=== PATIENT | female | born 1940 | race African-American/Black ===

== ENCOUNTER 2019-02-09 11:00 | Observation (INO) ==
--- NOTE | 2019-02-09 12:39 | Diag Imaging Result Doc PS360 ---
EXAM: CHEST-2 VIEWS - 02/09/2019 HISTORY: productive cough TECHNIQUE: Chest two views COMPARISON: 07/26/2017 one view chest FINDINGS: Heart size is normal. There is some tortuosity of the thoracic aorta. There are right upper lobe granuloma and calcified right hilar and mediastinal lymph nodes from old granulomatous disease similar to prior. The lungs otherwise appear essentially clear. There is mild thickening of the right minor fissure. There is no consolidation, substantial pleural effusion, or pneumothorax identified. There is thoracic spondylosis, as well as exaggerated upper thoracic kyphosis, noted. IMPRESSION: Mild thickening of right minor fissure. No evidence of pneumonia. Electronically signed by López Cramer 02/09/2019 12:36 PM
[2019-02-09 12:47] LABS: INFLUENZA A POSITIVE (NEGATIVE); INFLUENZA B NEGATIVE (NEGATIVE)
[2019-02-09] MEDS ORDERED: NS 1,000 ML IV ONE ×2 (13:04→13:50)
[2019-02-09] MEDS ORDERED: TAMIFLU PO ONE (13:05)
--- NOTE | 2019-02-09 13:31 | PROVIDER DOCUMENTATION ---
This chart was entered by Aries Meyers Scribe, acting as scribe for Ruben Emery DO. HPI-Abdominal Pain/GI Problem - General Chief Complaint: Cough Stated Complaint: COUGH / SORE THROAT Time Seen by Provider: 02/09/19 12:12 Source: patient, family Allergies/Adverse Reactions: Patient Allergies Allergy/AdvReac Type Severity Reaction Status Date / Time No Known Allergies Allergy Verified 02/09/19 12:38 Home Medications: Home Medication List Medication Instructions Recorded Confirmed Last Taken Type Metoprolol Succinate E.r. [Toprol 25 mg PO DAILY #30 tablet 11/12/16 02/09/19 Unknown Rx Xl] Insulin Glargine [Lantus] 26 units SQ QHS 06/30/17 02/09/19 Unknown History Apixaban [Eliquis] 5 mg PO BID 07/26/17 02/09/19 Unknown History Aspirin 1 tab PO DAILY 07/26/17 02/09/19 Unknown History Lisinopril [Zestril] 5 mg PO DAILY 07/26/17 02/09/19 Unknown History Pravastatin Sodium 20 mg PO HS 02/09/19 02/09/19 Unknown History - History of Present Illness-ABD Nature of Presenting Problems: 78 yof presents to the ed with coughing, N/V. pt states onset symptoms started Wed. pt states " cough ,cough, then i vomit." pt states " bilateral lower extremity cramps started before Wed and are at night. " pt states taking Robitussin with no relief. Quality of Pain: reports: none Severity in ED: reports: mild Onset/Duration: reports: 4 days ago Timing: reports: still present Activities at Onset: reports: none Modifying Factors: improves with: nothing Associated Symptoms: reports: cough, nausea, vomiting. denies: back/neck pain, chest pain, constipation, diarrhea, fever/chills, loss of appetite, rash, shortness of breath Last BM: unsure Dark Stools Present?: reports: none noticed Rectal Bleeding: reports: none Rectal Pain: reports: none # of Vomiting Episodes: 3 (since mon) Emesis Description: reports: none Bruising or Bleeding Gums?: No Similar Symptoms Previously?: No Recently seen or treated by another doctor?: No Review of Systems - Adult - REVIEW OF SYSTEMS - ADULT Constitutional: denies: chills, fever Eyes: reports: no symptoms reported Ears, Nose, Mouth & Throat: reports: no symptoms reported Cardiovascular: denies: chest pain, heart murmur, palpitations Respiratory: reports: see HPI, cough. denies: shortness of breath, wheezing Gastrointestinal: reports: nausea, vomiting. denies: abdominal pain, constipation, diarrhea Genitourinary: reports: no symptoms reported Musculoskeletal: denies: back pain, neck pain Integumentary: denies: hives, rash Neurological: denies: numbness, syncope Psychiatric: reports: no symptoms reported Endocrine: reports: no symptoms reported Hematologic/Lymphatic: reports: no symptoms reported Allergic/Immunologic: reports: no symptoms reported All Other Systems: Reviewed and Negative Past History - Adult - PAST MEDICAL HISTORY-ADULT Review of Records: reports: Old Records Reviewed, Nursing Assessment Review, Medications Reviewed, Social history reviewed & non-contributory. Major Childhood Illnesses: reports: denies history Cardiovascular: reports: HTN Respiratory: reports: denies history Gastrointestinal: reports: other (gastroparesis) Obstetrical/Gynecological: reports: denies history Genitourinary: reports: denies history Musculoskeletal: reports: denies history Neurological: reports: denies history Endocrine/Immune: reports: Diabetes Other Conditions: reports: denies history - PRIOR SURGERIES/PROCEDURES Surgical/Procedure History: reports: cholecystectomy, orthopedic (extremity) - PRIOR HOSPITALIZATIONS Prior Hospitalizations: reports: for similar symptoms - IMMUNIZATION STATUS Childhood Immunizations: See Nurse Assessment Flu Vaccine: See Nurse Assessment - FAMILY HISTORY Family History: reviewed, not pertinent - SOCIAL HISTORY Smoking: denies Substance Use: denies Alcohol Use Frequency: never Physical Exam-General - PHYSICAL EXAM-ADULT Initial Vital Signs Reviewed: Yes - CONSTITUTIONAL General Appearance: appears well, alert, mild distress - EYES Eyes: PERRL/EOMI - HEAD, EARS, NOSE, MOUTH & THROAT HENMT: moist mucous membranes - NECK Neck: full range of motion - RESPIRATORY Respiratory: chest non-tender, lungs clear, normal breath sounds, no pleuratic chest pain, no respiratory distress, no accessory muscle use - CARDIOVASCULAR Cardiovascular: normal peripheral pulses, regular rate, rhythm, no edema, no gallop, no murmur - CHEST (BREASTS) Chest/Breast: deferred - GASTROINTESTINAL (ABDOMEN) Abdominal Exam: normal bowel sounds, non tender, soft, no organomegaly, no pulsatile mass - GENITOURINARY Female Genitalia/Pelvic Exam: deferred Rectal Exam: deferred Hemoccult Exam: deferred - MUSCULOSKELETAL Back Exam: normal inspection, no CVA tenderness, no vertebral tenderness Extremity: normal range of motion, non-tender, normal inspection, no pedal edema - SKIN Integumentary: normal color, normal turgor, warm/dry - NEUROLOGIC Neurologic: grossly normal, no motor/sensory deficits - PSYCHIATRIC Psych/Mental Status: normal mood/affect, normal thought content, normal thought process, oriented x 3 Progress - PLAN OF CARE/RESULTS Progress/Plan/Lab Results: Vital Signs - 8 hr 02/09/19 11:17 Temperature 98.8 F Pulse Rate 93 H Respiratory Rate 18 Blood Pressure 103/58 O2 Sat by Pulse Oximetry 100 Laboratory Results - last 24 hr 02/09/19 02/09/19 11:25 12:08 POC Glucose 233 H Influenza A (Rapid) POSITIVE A Influenza B (Rapid) NEGATIVE Orders Category Date Time Status FSBS [Finger Stick Blood Sugar (ED)] DIRECTED Care 02/09/19 11:22 Active CHEST-2 VIEWS [RAD] Stat Exams 02/09/19 11:[address] Stat Lab 02/09/19 12:08 Completed - XRAY 1 XRAY Study: Chest Impression: See EMR Report (EXAM: CHEST-2 VIEWS - 02/09/2019 HISTORY: productive cough TECHNIQUE: Chest two views COMPARISON: 07/26/2017 one view chest FINDINGS: Heart size is normal. There is some tortuosity of the thoracic aorta. There are right upper lobe granuloma and calcified right hilar and mediastinal lymph nodes from old granulomatous disease similar to prior. The lungs otherwise appear essentially clear. There is mild thickening of the right minor fissure. There is no consolidation, substantial pleural effusion, or pneumothorax identified. There is thoracic spondylosis, as well as exaggerated upper thoracic kyphosis, noted. IMPRESSION: Mild thickening of right minor fissure. No evidence of pneumonia. Electronically signed by López Cramer 02/09/2019 12:36 PM 02/09/19 1236 Interpreting Physician: López Cramer MD Dictated Date/Time: 02/09/19 1233 cc: Ruben Emery DO; Melvin Barry MD) - CONSULTS/PCP/HOSPITALIST Notification #1 *Consult/PCP/Hospitalist*: De. Emery on the phone with Time Discussed: 13:21 Consult Disposition: Admit Departure - Departure Date of Disposition Decision: 02/09/19 Time of Disposition Decision: 13:31 DIAGNOSIS: Influenza, Nausea & vomiting Disposition: ADMITTED INPATIENT 09 Certified Medical Emergency: Emergent Condition: Fair Referrals and Follow-Ups: Melvin Barry MD [Primary Care Provider] - - Critical Care Note This patient required my direct & personal management of CC.: No Attestation - Physician/ KAILA Attestation Patient care was provided by Advanced Practice Provider:: No The physician spent face to face time with patient:: Yes Advanced Practice Provider documentation review:: Supervising physician onsite and consulted in the evaluation and care of this patient. The physician did have a face to face encounter with the patient. This chart was documented by the indicated scribe, (Aries Meyers, Scribe) and accurately reflects the services I performed and decisions made by , Ruben Emery DO, as attested by the provider's signature.
[2019-02-09 13:49] LABS: BASO# 0.02 X1000 (0.0-0.2); BASO% 0.3 % (0.0-0.8); EOS# 0.01 X1000 (0.0-0.7); EOS% 0.2 % (0.0-10.0); HEMATOCRIT 45.3 % (37.0-47.0); HEMOGLOBIN 14.6 g/dL (12.0-16.0); IMM GRAN# 0.02 X1000 (0.0-0.04); IMM GRAN% 0.3 % (0.0-0.5); LYMPH# 1.88 X1000 (1.2-3.4); LYMPH% 28.8 % (20.5-51.1); MCH 29.9 PG (27-31); MCHC 32.2 g/dL (33-37); MCV 92.8 FL (81-99); MONO# 1.34 X1000 (0.11-0.59); MONO% 20.6 % (1.7-9.3); MPV 12.8 FL (7.4-10.4); NEUT# 3.25 X1000 (1.4-6.5); NEUT% 49.8 % (42.2-75.2); PLT 154 X1000 (130-400); RBC 4.88 XMIL (4.2-5.4); RDW 12.5 % (11.5-14.5); WBC 6.52 X1000 (4.8-10.8)
[2019-02-09] MEDS ORDERED: PRINIVIL PO ONE (14:00)
[2019-02-09] MEDS ORDERED: TOPROL XL PO ONE (14:00)
[2019-02-09] MEDS ORDERED: PRAVACHOL PO ONE (14:00)
[2019-02-09] MEDS ORDERED: LANTUS INSULIN SUBQ ONE (14:00)
[2019-02-09] MEDS ORDERED: PRINIVIL ONE (14:10)
[2019-02-09] MEDS: ELIQUIS PO SCH ×2 (14:15→20:34)
[2019-02-09 14:39] LABS: ALBUMIN 3.4 g/dL (3.5-5.0); CALCIUM 8.2 mg/dL (8.8-10.2); CREATININE 1.2 mg/dL (0.5-0.9); POTASSIUM 4.1 mmol/L (3.5-5.1); TOTAL BILIRUBIN 0.8 mg/dL (0.20-1.00); TOTAL PROTEIN 6.3 g/dL (6.3-8.3)
[2019-02-09] MEDS: TAMIFLU PO SCH (20:34)
[2019-02-10] LABS: URINE SOURCE CLEAN CATCH
[2019-02-10 00:05] LABS: BILIRUBIN URINE NEGATIVE (NEGATIVE); BLOOD URINE NEGATIVE (NEGATIVE); COLOR YELLOW; GLUCOSE URINE 200 mg/dL (NEGATIVE); KETONE URINE TRACE mg/dL (NEGATIVE); LEUKOCYTES URINE MODERATE (NEGATIVE); NITRITE URINE NEGATIVE (NEGATIVE); PROTEIN URINE TRACE mg/dL (NEGATIVE); SP GRAVITY URINE 1.019; TURBIDITY URINE CLEAR (CLEAR); UROBILINOGEN URINE NORMAL (NORMAL)
[2019-02-10 00:39] LABS: URINE RBC <10 /HPF (<10)
[2019-02-10 00:40] LABS: UR EPITHELIAL CELLS >10 /HPF (<10); URINE BACTERIA 2+ /HPF; URINE CASTS GRANULAR PRESENT; URINE CRYSTALS NONE SEEN; URINE SMALL ROUND CELLS NONE SEEN; URINE YEAST NONE SEEN
[2019-02-10] MEDS ORDERED: TYLENOL PO PRN (03:16)
[2019-02-10] MEDS: ROBITUSSIN-AC PO PRN (04:30)
[2019-02-10] MEDS: ELIQUIS PO SCH ×2 (08:58→20:12)
[2019-02-10] MEDS: PRINIVIL PO SCH (08:58)
[2019-02-10] MEDS: ASPIRIN PO SCH (08:58)
[2019-02-10] MEDS: TAMIFLU PO SCH ×2 (08:58→20:12)
[2019-02-10] MEDS: TOPROL XL PO SCH (08:58)
[2019-02-10] MEDS: PRAVACHOL PO SCH (20:12)
[2019-02-10] MEDS ORDERED: TAMIFLU PO SCH (21:00)
[2019-02-10] MEDS: LANTUS INSULIN SUBQ SCH (21:16)
[2019-02-11] MEDS: ROBITUSSIN-AC PO PRN (00:13)
[2019-02-11] MEDS: ASPIRIN PO SCH (10:20)
[2019-02-11] MEDS: TOPROL XL PO SCH (10:21)
[2019-02-11] MEDS: ELIQUIS PO SCH ×2 (10:21→20:23)
[2019-02-11] MEDS: TAMIFLU PO SCH ×2 (10:21→20:23)
[2019-02-11] MEDS: PRINIVIL PO SCH (10:21)
[2019-02-11 14:24] LABS: BASO# 0.06 X1000 (0.0-0.2); BASO% 0.9 % (0.0-0.8); EOS# 0.08 X1000 (0.0-0.7); EOS% 1.3 % (0.0-10.0); HEMATOCRIT 38.7 % (37.0-47.0); HEMOGLOBIN 12.2 g/dL (12.0-16.0); IMM GRAN# 0.01 X1000 (0.0-0.04); IMM GRAN% 0.2 % (0.0-0.5); LYMPH# 1.96 X1000 (1.2-3.4); MCH 29.3 PG (27-31); MCHC 31.5 g/dL (33-37); MCV 92.8 FL (81-99); MONO# 0.73 X1000 (0.11-0.59); MONO% 11.6 % (1.7-9.3); NEUT# 3.48 X1000 (1.4-6.5); PLT 144 X1000 (130-400); RBC 4.17 XMIL (4.2-5.4); RDW 12.1 % (11.5-14.5); WBC 6.32 X1000 (4.8-10.8)
[2019-02-11 14:49] LABS: AGAP 12; ALBUMIN 3.1 g/dL (3.5-5.0); ALKALINE PHOSPHATASE 69 U/L (32-104); BUN 16 mg/dL (8-22); CHLORIDE 97 mmol/L (98-107); COSMO 277; CREATININE 0.8 mg/dL (0.5-0.9); ESTIMATED GFR > 60; GLUCOSE 338 mg/dL (70-104); GOT 29 U/L (10-30); GPT 17 U/L (10-36); POTASSIUM 4.4 mmol/L (3.5-5.1); SODIUM 131 mmol/L (136-145); TCO2 22 mmol/L (25-35); TOTAL PROTEIN 6.1 g/dL (6.3-8.3)
--- NOTE | 2019-02-11 19:58 | Diag Imaging Result Doc PS360 ---
CHEST-2 VIEWS - 02/11/2019 INDICATION: pneumonia COMPARISON: 02/09/2019 FINDINGS: There is some stable linear atelectasis or scarring in the right minor fissure. The lungs are clear. Heart size is normal. No pneumothorax or pleural effusion. IMPRESSION: No acute disease or change from prior. Electronically signed by Hal Graff 02/11/2019 7:55 PM
[2019-02-11] MEDS: PRAVACHOL PO SCH (20:23)
[2019-02-11] MEDS: LANTUS INSULIN SUBQ SCH (22:20)
[2019-02-12] MEDS: ELIQUIS PO SCH (08:25)
[2019-02-12] MEDS: TAMIFLU PO SCH (08:25)
[2019-02-12] MEDS: PRINIVIL PO SCH (08:25)
[2019-02-12] MEDS: TOPROL XL PO SCH (08:25)
[2019-02-12] MEDS: ASPIRIN PO SCH (08:25)
[2019-02-12 13:30] VITALS: BP 163/54
--- NOTE | 2019-02-12 15:40 | HISTORY AND PHYSICAL ---
HISTORY OF PRESENT ILLNESS: This is an 78-year-old female who I see in the office who presented to the emergency room on 02/09/2019 brought in by her family complaining of a cough, sore throat and episodes of vomiting. The patient said that since Monday, a couple of days prior to her being admitted, she would begin having these coughing spells followed by vomiting. She started having leg cramps at night and body aches. She was put on some Robitussin with no relief, so she presents to the ER 4 days after the onset of these symptoms where she was evaluated. MEDICATIONS: Metoprolol succinate ER 25 mg daily, Lantus 26 units q bedtime, Eliquis 5 mg p.o. b.i.d. for history of lung clot, aspirin, Zestril 5 mg, pravastatin 20. She has also had cardiomyopathy as well. ALLERGIES: She has no allergies. She denies having any dark stools or blood in her vomit. She has vomited 3 times since Monday. No other signs of any kind of bleeding anywhere. She denies constipation or diarrhea. [employer]: She denies any history. Genitourinary: No polyuria, polydipsia, hematuria. Musculoskeletal: Other than occasional cramps in her legs, no significant problem. Neurological: No focal neurological deficits. No neurological issues. Endocrine: She is diabetic and has been told to have gastroparesis, but that is somewhat debatable. PAST MEDICAL HISTORY: No unusual childhood illnesses. She has had hypertension. 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 She has had a history of cardiomyopathy, being evaluated at [facility]. She also has a history of diabetes and has been deemed gastroparetic. She has had numerous episodes where she has been hospitalized for uncontrollable vomiting for days on end. PREVIOUS SURGERIES: Cholecystectomy, some various orthopedic type surgeries. She has been hospitalized in the past for these episodes of vomiting, but on this particular occasion she has Flu A unlike other times when she just vomits repetitively for no reason other than maybe gastroparesis. SOCIAL HISTORY: She is a nonsmoker. She does not abuse any substance and never drank alcohol. PHYSICAL EXAMINATION: VITAL SIGNS: Temperature 98, pulse 93, respirations 18, blood pressure 103/58, O2 saturation 100. HEENT: Head is normocephalic. Eyes: PERRL. EOMs intact. Sclerae clear and anicteric. ENT: No ear issues. No significant sore throat. Her membranes are moist. NECK: Full range of motion. Midline trachea. Carotids without bruits. CHEST: Bilateral clear breath sounds, under no distress. CARDIOVASCULAR: Regular rhythm and rate. No murmurs, gallops, clicks or rubs. ABDOMEN: Soft, nontender. No organomegaly. No masses. MUSCULOSKELETAL: Negative. SKIN: Clear, warm and dry. NEUROLOGICAL: Symmetrical. No neurological issues. PSYCHIATRIC: Negative other than she is a good histrionic. Her chest x-ray done in the ER shows mild thickening of the right minor fissure and no evidence of pneumonia as read by the attending physician. So, she was admitted with a positive Flu A swab initially to the hospitalist and switched to sc for flu and diabetes, cardiomyopathy, gastroparesis and history of cyclical vomiting. cc: Melvin Barry MD
--- NOTE | 2019-03-19 09:19 | DISCHARGE SUMMARY ---
ADMISSION DATE: 02/09/2019 DISCHARGE DATE: 02/12/2019 Ms. Baker presented to the emergency room on 02/09 and was admitted to the hospital by Dr. Emery who was staff in the ER that night. Family brought her in mostly because of cough, sore throat, episodes of vomiting. The patient said that since Monday, a couple days prior to her being admitted, she would begin having these coughing spells followed by vomiting. She stated she started having leg cramps at night and body aches. She was put on Robitussin with no relief so she presented to the ER four days after the onset of these symptoms where she was evaluated. Medications are metoprolol succinate 25 daily, Eliquis 5 b.i.d., Lantus 26 nightly, Zestril 5, pravastatin 20, aspirin for her history of lung clots. She also has a history of cardiomyopathy as well. Her chest x-ray done in the ER showed mild thickening to the right minor fissure and no evidence of pneumonia as read by the attending physician. She was admitted with positive flu A swab, initially to the hospitalist and then switched to id for her diabetes, cardiomyopathy and gastroparesis. During this hospital stay she had the initial x-ray at 1:30 which showed mild thickening of the right minor fissure, no pneumonia and subsequent x-ray showed no acute disease. Her microbiology, urine was with a mixed elizabeth. Laboratory: White count was 6.52 on 02/09 and 6.32 on 02/11. Hematocrit was 45.3 and 38.7. Platelet count was 154 and 144. Sodium 132. Potassium 4.1. Chloride 96. Carbon dioxide 23. BUN 28. Creatinine 1.2. GFR 43. BUN and creatinine ratio 23. Glucoses were in the low 230 range. Calcium was 8.2. Albumin was low at 3.4. LFTs were normal. Urinalysis had 200 on dipstick. Moderate leukocytes, 10 to 20, 2+ bacteria. Serologies were positive for flu. She was discharged to her home medicines, metoprolol succinate 25 daily and insulin glargine 100 units per meal 26 subcutaneously, aspirin 81,eliquis b.i.d., lisinopril 2.5, pravastatin. In the hospital placed on Tamiflu 75 b.i.d. Continue on metoprolol, pravastatin, lisinopril, Eliquis. Treat her symptomatically with guaifenesin. Patient was discharged with flu A. To be followed as an outpatient. cc: Melvin Barry MD MTDD
== END 2019-02-12 18:42 | disposition home or self-care (01) ==
LOC: P.ED 11:00 → P.MEDSURG 11:00
PROVIDERS: ADMIT Internal Medicine; ATTEND Internal Medicine

== ENCOUNTER 2019-05-22 13:54 | Observation (INO) ==
[2019-05-22] MEDS ORDERED: NS 1,000 ML IV ONE ×3 (14:52→19:32)
[2019-05-22] MEDS ORDERED: ZOFRAN IV ONE ×2 (14:52→18:29)
--- NOTE | 2019-05-22 15:04 | PROVIDER DOCUMENTATION ---
HPI-Abdominal Pain/GI Problem - General Chief Complaint: Nausea/Vomiting Stated Complaint: N / V Time Seen by Provider: 05/22/19 14:51 Source: patient Allergies/Adverse Reactions: Patient Allergies Allergy/AdvReac Type Severity Reaction Status Date / Time No Known Allergies Allergy Verified 02/09/19 12:38 Home Medications: Home Medication List Medication Instructions Recorded Confirmed Last Taken Type Metoprolol Succinate E.r. [Toprol 25 mg PO DAILY #30 tablet 11/12/16 02/09/19 Unknown Rx Xl] Insulin Glargine [Lantus] 26 units SQ QHS 06/30/17 02/09/19 Unknown History Apixaban [Eliquis] 5 mg PO BID 07/26/17 02/09/19 Unknown History Aspirin 1 tab PO DAILY 07/26/17 02/09/19 Unknown History Lisinopril [Zestril] 5 mg PO DAILY 07/26/17 02/09/19 Unknown History Pravastatin Sodium 20 mg PO HS 02/09/19 02/09/19 Unknown History Guaifenesin/Codeine [Robitussin-AC] 5 ml PO Q6H PRN PRN #6 udc 02/12/19 Unknown Rx - History of Present Illness-ABD Nature of Presenting Problems: 78 YOF with PMH of HTN and DM presents with c/o n/v since this AM. Denies fever, chills, SOB, CP, Diarrhea. Patient denies abdominal pain Quality of Pain: reports: none Severity in ED: reports: moderate Onset/Duration: reports: this morning Timing: reports: still present Activities at Onset: reports: none Exposure to sick contacts?: No Modifying Factors: improves with: nothing Associated Symptoms: reports: nausea, vomiting Last BM: 24 hours ago Dark Stools Present?: reports: none noticed Rectal Bleeding: reports: none # of Diarrhea Episodes: 0 Rectal Pain: reports: none # of Vomiting Episodes: 8 Emesis Description: reports: clear Bruising or Bleeding Gums?: No Similar Symptoms Previously?: Yes Recently seen or treated by another doctor?: No Review of Systems - Adult - REVIEW OF SYSTEMS - ADULT Constitutional: reports: no symptoms reported. denies: see HPI, chills, fever, fatique, night sweats, weight gain, weight loss, other Eyes: reports: no symptoms reported. denies: see HPI, discharge, dry eyes, decreased vision, blurred vision, double vision, eye pain, redness, other Ears, Nose, Mouth & Throat: reports: no symptoms reported. denies: see HPI, ear discharge, ear pain, hearing loss, tinnitus, epistaxis, sinus problem, nose pain, loose teeth, mouth/dental pain, mouth swelling, hoarseness, throat pain, throat swelling, other Cardiovascular: reports: no symptoms reported. denies: see HPI, chest pain, edema, heart murmur, irregular heart rate, orthopnea, palpitations, poor circulation, PND, syncope, other Respiratory: reports: no symptoms reported. denies: see HPI, chronic cough, cough, dyspnea on exertion, excessive sputum production, hemoptysis, pleurisy, shortness of breath, wheezing, other Gastrointestinal: reports: see HPI, nausea, vomiting. denies: no symptoms reported, abdominal pain, hematemesis, constipation, diarrhea, difficulty swa llowing, frequent heartburn, poor appetite, rectal bleeding, other Genitourinary: reports: no symptoms reported. denies: see HPI, dysuria, discharge, frequency, flank pain, frequent UTI's, hematuria, hesitency, incontinence, urinary retention, urgency, other Musculoskeletal: reports: no symptoms reported. denies: see HPI, bone pain, back pain, frequent leg cramps, joint pain, joint swelling, muscle aches, muscle weakness, neck pain, other Integumentary: reports: no symptoms reported. denies: see HPI, hives, hair loss , itching, mole changes, nail changes, rash, skin sores/ulcer, skin thickening, other Neurological: reports: no symptoms reported. denies: see HPI, ataxia, dizziness/vertigo, headache/migraines, loss of balance, numbness, paresthesia, seizure, slurred speech, syncope, tremors, other Psychiatric: reports: no symptoms reported. denies: see HPI, anxiety, anti- depressant use, alcohol/drug dependence, depression, emotional problems, insomnia, panic attacks, suicidal thoughts, other Endocrine: reports: no symptoms reported. denies: see HPI, change in skin pigment, excessive sweating, goiter, cold intolerance, heat intolerance, increased hunger, increased thirst, polyuria, other Hematologic/Lymphatic: reports: no symptoms reported. denies: see HPI, blood clots, easy bruising, low blood count, lymphedema, prolonged bleeding, swollen lymph nodes, transfusions, other Allergic/Immunologic: reports: no symptoms reported. denies: see HPI, allergic reactions, allergic rhinitis, asthma, eczema, food allergy, frequent infections, hay fever, hives, positive PPD, urticaria, other Past History - Adult - PAST MEDICAL HISTORY-ADULT Review of Records: reports: Nursing Assessment Review, Social history reviewed & non-contributory. Major Childhood Illnesses: reports: denies history Cardiovascular: reports: HTN Respiratory: reports: denies history Gastrointestinal: reports: other (gastroparesis) Obstetrical/Gynecological: reports: denies history Genitourinary: reports: denies history Musculoskeletal: reports: denies history Neurological: reports: denies history Endocrine/Immune: reports: Diabetes Other Conditions: reports: denies history - PRIOR SURGERIES/PROCEDURES Surgical/Procedure History: reports: cholecystectomy, orthopedic (extremity) - PRIOR HOSPITALIZATIONS Prior Hospitalizations: reports: for similar symptoms - IMMUNIZATION STATUS Childhood Immunizations: See Nurse Assessment Flu Vaccine: See Nurse Assessment - FAMILY HISTORY Family History: reviewed, not pertinent Physical Exam-General - PHYSICAL EXAM-ADULT Initial Vital Signs Reviewed: Yes - CONSTITUTIONAL General Appearance: alert, no apparent distress - EYES Eyes: PERRL/EOMI, pink conjunctivae - HEAD, EARS, NOSE, MOUTH & THROAT HENMT: normocephalic/atraumatic, moist mucous membranes, normal ENT inspection - NECK Neck: non-tender, full range of motion, supple - RESPIRATORY Respiratory: chest non-tender, lungs clear, normal breath sounds, no pleuratic chest pain, no respiratory distress, no accessory muscle use - CARDIOVASCULAR Cardiovascular: normal peripheral pulses, regular rate, rhythm, no edema, no gallop, no JVD, no murmur - GASTROINTESTINAL (ABDOMEN) Abdominal Exam: normal bowel sounds, non tender, soft - LYMPHATIC Lymphatic: no adenopathy - MUSCULOSKELETAL Back Exam: normal inspection, no CVA tenderness, no vertebral tenderness Extremity: normal range of motion, non-tender, normal gait Peripheral Pulses: radial (R): 2+, radial (L): 2+ - SKIN Integumentary: normal color, normal turgor, other (cool and clammy) - NEUROLOGIC Neurologic: grossly normal - PSYCHIATRIC Psych/Mental Status: normal mood/affect, oriented x 3 Progress - PLAN OF CARE/RESULTS Progress/Plan/Lab Results: Vital Signs - 8 hr 05/22/19 14:02 Temperature 97.5 F L Pulse Rate 113 H Respiratory Rate 18 Blood Pressure 180/94 O2 Sat by Pulse Oximetry 98 Orders Category Date Time Status FSBS [Finger Stick Blood Sugar (ED)] DIRECTED Care 05/22/19 14:57 Active Saline Loc NOW Care 05/22/19 14:52 Active CBC WITH ELECTRONIC DIFF [HEME] Stat Lab 05/22/19 14:52 Uncollected COMPREHENSIVE METABOLIC PANEL [CHEM] Stat Lab 05/22/19 14:52 Uncollected Flu [INFLUENZA SCREEN PL] Stat Lab 05/22/19 14:58 Uncollected LIPASE [CHEM] Stat Lab 05/22/19 14:52 Uncollected UA NIMS W/REFLEX CULT [URINALYSIS] Stat Lab 05/22/19 14:52 Uncollected 0.9% Sodium Chloride Inj [Ns] 1,000 ml Med 05/22/19 14:52 Active IV 999 mls/hr Ondansetron [Zofran] Med 05/22/19 14:52 Discontinued 4 mg IV NOW ONE Result Diagrams: 05/22/19 16:00 05/22/19 16:00 - REASSESSMENT Reassessment #1 Time Reassessed: 16:26 Status: improving (N/V HAS RESOLVED WITH ZOFRAN, UPDATED ON PLAN FOR CT A&P) - CT/MRI 1 CT Study: Abdomen, Pelvis Impression: See EMR Report (EXAM: CT ABD/PELVIS W/IV CONT ONLY - 05/22/2019 HISTORY: abd pain, N/V TECHNIQUE: CT abdomen/pelvis with intravenous contrast COMPARISON: 07/12/2015 FINDINGS: The visualized lung bases are clear. There are postsurgical changes of cholecystectomy. There are no acute abnormalities of the liver, spleen, adrenal glands, or pancreas identified. The bilateral kidneys enhance homogeneously. There is no hydronephrosis. There are nonspecific small retroperitoneal lymph nodes. There are atherosclerotic calcifications noted. There are lumbar spine degenerative changes noted, including apparent associated substantial spinal stenosis at L4-5 and possibly L3-4 The uterus is massively enlarged and contains multiple fibroids, some which are calcified or partially calcified. The uterus deviates to the right and extends superiorly to the mid to lower abdomen. The uterus was also substantially enlarged and the prior exam is contained multiple fibroids. The urinary bladder is moderately distended. There is no evidence of bowel obstruction. There is no substantial bowel wall thickening identified. There is no free air, free fluid, or abscess identified. There is a small fat-containing midline anterior pelvic wall hernia, apparently at prior surgical incision site, similar to prior. IMPRESSION: Lumbar spine degenerative changes. Apparent associated substantial spinal stenosis at L4-5 and possibly L3-4. Massively enlarged uterus, which contains multiple fibroids. Moderately distended urinary bladder. No bowel obstruction. No abscess. No free air. This exam was performed using automated exposure control, adjustment of mA or kV according to patient size, and/or use of iterative reconstruction technique. Electronically signed by López Cramer 05/22/2019 6:37 PM 05/22/191836 Interpreting Physician: López Carmer MD Dictated Date/Time: 05/22/191826 cc: Mohini Trujillo; Melvin Barry MD) - CONSULTS/PCP/HOSPITALIST Notification #1 *Consult/PCP/Hospitalist*: Dr. Barry Time Discussed: 19:30 Consult Disposition: Admit (reviewed home meds-continue all, IVF, Phenergan 12.5mg IM PRN, rocephin IV) Departure - Departure Date of Disposition Decision: 05/22/19 Time of Disposition Decision: 19:31 DIAGNOSIS: Nausea & vomiting, Enlarged uterus, Uterine fibroid, UTI (urinary tract infection), Elevated lactic acid level, Hyperglycemia due to type 2 diabetes mellitus Disposition: ADMITTED INPATIENT 09 Certified Medical Emergency: Emergent Condition: Stable Referrals and Follow-Ups: Melvin Barry MD [Primary Care Provider] - Mundo Trejo DO [ACTIVE STAFF PHYSICIAN] - - Critical Care Note This patient required my direct & personal management of CC.: No Attestation - Physician/ KAILA Attestation Patient care was provided by Advanced Practice Provider:: Yes Advanced Practice Provider:: Mohini Trujillo Advanced Practice Provider documentation review:: The Mid-level provider documentation, treatment plan and medical decision making was reviewed by the physician who agrees with all treatment and medical decision making by the P. The physician spent face to face time with patient:: No Advanced Practice Provider documentation review:: Supervising physician onsite and consulted in the evaluation and care of this patient. The physician did not have a face to face encounter with the patient.
[2019-05-22 16:09] LABS: BE -0.3 mmoll (-3.0-3.0); BLOOD TYPE ARTERIAL; HCO3-(ACT) 24.6 mmoll (20.0-26.0); METHB 1.5 % (0.0-1.5); O2(CT) 21.7 mL/dL (15.0-23.0); PCO2(98.6) 34 mmHg (35-45); PO2(98.6) 84 mmHg (60-100); SAMPLE BLOOD; SAO2 97.6 % (95.0-100.0); THB 16.4 g/dL (11.5-17.4); pH(98.6) 7.44 (7.35-7.45)
[2019-05-22 16:16] LABS: BASO# 0.03 X1000 (0.0-0.2); BASO% 0.2 % (0.0-0.8); EOS# 0.01 X1000 (0.0-0.7); EOS% 0.1 % (0.0-10.0); HEMATOCRIT 45.4 % (37.0-47.0); HEMOGLOBIN 14.9 g/dL (12.0-16.0); IMM GRAN# 0.04 X1000 (0.0-0.04); IMM GRAN% 0.3 % (0.0-0.5); LYMPH# 0.93 X1000 (1.2-3.4); LYMPH% 7.1 % (20.5-51.1); MCH 29.8 PG (27-31); MCHC 32.8 g/dL (33-37); MCV 90.8 FL (81-99); MONO# 0.36 X1000 (0.11-0.59); MONO% 2.8 % (1.7-9.3); MPV 13.1 FL (7.4-10.4); NEUT% 89.5 % (42.2-75.2); PLT 204 X1000 (130-400); RDW 12.4 % (11.5-14.5); WBC 13.07 X1000 (4.8-10.8)
[2019-05-22 16:29] LABS: ALLEN TEST YES; MODALITY ROOM AIR
[2019-05-22 16:53] LABS: INFLUENZA A NEGATIVE (NEGATIVE); INFLUENZA B NEGATIVE (NEGATIVE)
[2019-05-22] MEDS ORDERED: HUMULIN R SUBQ ONE (16:58)
[2019-05-22 16:59] LABS: ALBUMIN 4.5 g/dL (3.5-5.0); CALCIUM 9.4 mg/dL (8.8-10.2); CREATININE 0.9 mg/dL (0.5-0.9); POTASSIUM 4.4 mmol/L (3.5-5.1); TOTAL BILIRUBIN 0.6 mg/dL (0.20-1.00)
[2019-05-22] MEDS ORDERED: HUMULIN R (PARKWAY) ONE (17:27)
--- NOTE | 2019-05-22 18:40 | Diag Imaging Result Doc PS360 ---
EXAM: CT ABD/PELVIS W/IV CONT ONLY - 05/22/2019 HISTORY: abd pain, N/V TECHNIQUE: CT abdomen/pelvis with intravenous contrast COMPARISON: 07/12/2015 FINDINGS: The visualized lung bases are clear. There are postsurgical changes of cholecystectomy. There are no acute abnormalities of the liver, spleen, adrenal glands, or pancreas identified. The bilateral kidneys enhance homogeneously. There is no hydronephrosis. There are nonspecific small retroperitoneal lymph nodes. There are atherosclerotic calcifications noted. There are lumbar spine degenerative changes noted, including apparent associated substantial spinal stenosis at L4-5 and possibly L3-4 The uterus is massively enlarged and contains multiple fibroids, some which are calcified or partially calcified. The uterus deviates to the right and extends superiorly to the mid to lower abdomen. The uterus was also substantially enlarged and the prior exam is contained multiple fibroids. The urinary bladder is moderately distended. There is no evidence of bowel obstruction. There is no substantial bowel wall thickening identified. There is no free air, free fluid, or abscess identified. There is a small fat-containing midline anterior pelvic wall hernia, apparently at prior surgical incision site, similar to prior. IMPRESSION: Lumbar spine degenerative changes. Apparent associated substantial spinal stenosis at L4-5 and possibly L3-4. Massively enlarged uterus, which contains multiple fibroids. Moderately distended urinary bladder. No bowel obstruction. No abscess. No free air. This exam was performed using automated exposure control, adjustment of mA or kV according to patient size, and/or use of iterative reconstruction technique. Electronically signed by López Cramer 05/22/2019 6:37 PM
[2019-05-22 18:51] LABS: URINE SOURCE CLEAN CATCH
[2019-05-22 18:56] LABS: BILIRUBIN URINE NEGATIVE (NEGATIVE); BLOOD URINE NEGATIVE (NEGATIVE); COLOR STRAW; GLUCOSE URINE >1000 mg/dL (NEGATIVE); KETONE URINE 20 mg/dL (NEGATIVE); LEUKOCYTES URINE SMALL (NEGATIVE); NITRITE URINE NEGATIVE (NEGATIVE); PH URINE 7.5; PROTEIN URINE TRACE mg/dL (NEGATIVE); SP GRAVITY URINE 1.022; TURBIDITY URINE CLEAR (CLEAR); UROBILINOGEN URINE NORMAL (NORMAL)
[2019-05-22 18:59] LABS: UR EPITHELIAL CELLS <10 /HPF (<10); URINE BACTERIA NEGATIVE /HPF; URINE RBC <10 /HPF (<10); URINE WBC 20-40 /HPF (<10)
[2019-05-22] MEDS ORDERED: TYLENOL PO PRN (19:32)
[2019-05-22 19:44] LABS: INR 0.97; PROTIME 13.4 Seconds (11.0-16.0)
[2019-05-22 19:45] LABS: PTT 25.9 Seconds (22.3-41.8)
[2019-05-22] MEDS ORDERED: PHENERGAN PO PRN (22:02)
[2019-05-22] MEDS ORDERED: HUMALOG SUBQ SCH (22:02)
[2019-05-23] MEDS: LANTUS INSULIN SUBQ SCH ×2 (00:35→20:31)
[2019-05-23] MEDS: ELIQUIS PO SCH ×3 (00:35→20:31)
[2019-05-23] MEDS: PHENERGAN IV PRN (05:13)
[2019-05-23 05:26] LABS: CK INDEX 2.1 (0.0-2.5); CK-MB 3.77 ng/mL (0.0-5.0)
[2019-05-23] MEDS: HUMALOG (PARKWAY) SUBQ SCH ×4 (06:38→22:09)
--- NOTE | 2019-05-23 08:02 | Diag Imaging Result Doc PS360 ---
EXAM: CHEST-1 VIEW - 05/23/2019 HISTORY: sepsis protocol TECHNIQUE: Portable chest one view COMPARISON: 02/11/2019 FINDINGS: Heart size appears normal. There is mild tortuosity of the thoracic aorta similar to prior. Inspiration is slightly shallow. There are stable calcified right hilar and mediastinal lymph nodes from old granulomatous disease. Lungs otherwise appear clear. There is no pleural effusion or pneumothorax identified. IMPRESSION: Slightly shallow inspiration. No other evidence of acute disease. Electronically signed by López Cramer 05/23/2019 8:00 AM
[2019-05-23] MEDS: TOPROL XL PO SCH (09:23)
[2019-05-23] MEDS: PRINIVIL PO SCH (09:23)
[2019-05-23 11:56] LABS: BASO# 0.03 X1000 (0.0-0.2); BASO% 0.2 % (0.0-0.8); HEMATOCRIT 46.4 % (37.0-47.0); HEMOGLOBIN 14.9 g/dL (12.0-16.0); IMM GRAN# 0.04 X1000 (0.0-0.04); IMM GRAN% 0.2 % (0.0-0.5); LYMPH# 1.65 X1000 (1.2-3.4); LYMPH% 9.5 % (20.5-51.1); MCHC 32.1 g/dL (33-37); MCV 93.4 FL (81-99); MONO# 1.49 X1000 (0.11-0.59); MONO% 8.6 % (1.7-9.3); NEUT# 14.16 X1000 (1.4-6.5); NEUT% 81.5 % (42.2-75.2); PLT 213 X1000 (130-400); RBC 4.97 XMIL (4.2-5.4); RDW 12.8 % (11.5-14.5); WBC 17.37 X1000 (4.8-10.8)
[2019-05-23 12:09] LABS: ALBUMIN 4.1 g/dL (3.5-5.0); CALCIUM 9.4 mg/dL (8.8-10.2); CREATININE 1.1 mg/dL (0.5-0.9); POTASSIUM 4.6 mmol/L (3.5-5.1); TOTAL BILIRUBIN 0.7 mg/dL (0.20-1.00); TOTAL PROTEIN 7.5 g/dL (6.3-8.3)
[2019-05-23 16:19] LABS: HEMOGLOBIN A1C 9.4 % (4.8-6.0)
--- NOTE | 2019-05-23 17:10 | HISTORY AND PHYSICAL ---
HISTORY OF PRESENT ILLNESS: The patient is an 78-year-old female that I see infrequently in the office. She presented on this particular day or night to the Emergency Room complaining of nausea and vomiting. This 78-year-old female with a past medical history of hypertension and diabetes again presents with the complaint of nausea and vomiting since the relief pilot. Denies fever, chills, shortness of breath, chest pain, or diarrhea. Denies abdominal pain. It started as reported in the E.R. as moderate discomfort. It started this morning. It is still present. She denies any contacts to sick people other than her daughters who are not ill. She had some nausea and vomiting. No bowel movement. In fact, she has not had a bowel movement in 24 hours. No melena, hematochezia, or rectal bleeding. No diarrhea or rectal pain. MEDICATIONS: Her medications on admission are metoprolol 25 mg daily, insulin glargine 26 units of insulin at bedtime, aspirin 81 mg daily, Eliquis 5 mg b.i.d., Pravastatin 20 mg, and Guaifenesin and codeine. PAST MEDICAL HISTORY: She has been evaluated at [facility] and at [facility] about her repetitive episodes of nausea and vomiting that lasts anywhere from 2 to 3 days that have been ascribed to gastroparesis. She has a background history of hypertension. She has had diabetes for a long time that has not been orally controlled. She is status post cholecystectomy. She has had some orthopedic surgeries. She is a nonsmoker and nondrinker that is never ill other than these episodes that occur randomly. REVIEW OF SYSTEMS: Constitutional: She denies any fever, chills, night sweats, significant weight loss or weight gain. Eyes: No visual acuity changes. No irrigation of the conjunctivae or sclerae. Ears, nose, and throat: No pharyngitis or otitis. Cardiovascular: She denies chest pain, palpitations, PND, or orthopnea. Respiratory: No shortness of breath, cough, wheeze, or phlegm production. Gastrointestinal: She is nauseated and vomiting. Otherwise, she has no significant problems with her bowel movements, blood loss, or reflux disease. Genitourinary: No polyuria, polydipsia, dysuria, or hematuria. Musculoskeletal: No joint aches or bone pains. Skin: Clear. Neurological: No focal neurological deficits. No headaches. No migraines. Psychiatric: She is not depressed, not anxious, and very even keeled. Endo: She has had diabetes for quite a while. No thyroid disease. Hematological: No bleeding or clotting. She is on Eliquis. VITAL SIGNS: At the time of admission her temperature was 97.5, pulse 113, respiratory rate 18, and BP 180/94. O2 saturation was 98% on room air. DIAGNOSTIC DATA: She had a CBC done her hematocrit was 45.4, platelets were 204, white count was 13,500 with a relatively normal diff. Her electrolytes reveal a sodium of 138, potassium was 4.4, chloride 97, CO2 22, BUN 15, creatinine 0.9, and glucose 400. She had a CT of the abdomen and pelvis revealing a degenerative lumbar spine, substantial spinal stenosis at L4-L5. She has a massively enlarged uterus which contains multiple fibroids which has been known for some time. Moderately distended urinary bladder. No bowel obstruction or abscess. No free air. Additional laboratory showed that her white count went from 13,000 yesterday to 17,000. Her chemistries today reveal a BUN of 18 and creatinine 0.1. Lactate is 1.4; her previous one was 2. BUN is 18 and creatinine 1.4. GFR guesstimated at 48. Glucose was 201. Her urinalysis had 4+ glucose. Ketones were positive. There were 20 to 40 white cells. She had vomited 6 times prior to arriving and had taken some Zofran with some benefit although it subsequently returned and she started vomiting again this morning. So, as we typically do she was put up stairs to control her diabetes and we will give her Phenergan and she is getting Rocephin just because her white count is up at this particular time. She was placed on an antibiotic. I think this is her gastroparesis again. She may have a urinary tract infection. Her diabetes is generally well controlled. We will do an A1c on her. We will continue to treat her and rehydrate her. cc: Melvin Barry MD
[2019-05-23] MEDS: PRAVACHOL PO SCH (20:31)
[2019-05-23] MEDS: ROCEPHIN 1 GM in NS 50 ML IV SCH ×3 (22:09)
[2019-05-24] MEDS: HUMALOG (PARKWAY) SUBQ SCH ×4 (06:55→21:15)
[2019-05-24] MEDS: PRINIVIL PO SCH (08:12)
[2019-05-24] MEDS: TOPROL XL PO SCH (08:12)
[2019-05-24] MEDS: ELIQUIS PO SCH ×2 (08:12→20:28)
[2019-05-24] MEDS: PHENERGAN IV PRN ×3 (08:26→21:16)
[2019-05-24] MEDS: SODIUM CHLORIDE 0.9% INJ PRN ×2 (08:26→17:19)
[2019-05-24 12:58] LABS: BASO# 0.05 X1000 (0.0-0.2); BASO% 0.4 % (0.0-0.8); EOS# 0.03 X1000 (0.0-0.7); EOS% 0.3 % (0.0-10.0); HEMOGLOBIN 14.8 g/dL (12.0-16.0); IMM GRAN# 0.02 X1000 (0.0-0.04); IMM GRAN% 0.2 % (0.0-0.5); LYMPH# 2.14 X1000 (1.2-3.4); LYMPH% 18.9 % (20.5-51.1); MCH 29.9 PG (27-31); MCHC 32.2 g/dL (33-37); MCV 92.9 FL (81-99); MONO% 8.8 % (1.7-9.3); MPV 13.2 FL (7.4-10.4); NEUT# 8.09 X1000 (1.4-6.5); NEUT% 71.4 % (42.2-75.2); PLT 227 X1000 (130-400); RBC 4.95 XMIL (4.2-5.4); RDW 12.6 % (11.5-14.5); WBC 11.33 X1000 (4.8-10.8)
[2019-05-24 13:35] LABS: ALBUMIN 3.7 g/dL (3.5-5.0); CALCIUM 8.8 mg/dL (8.8-10.2); CREATININE 1.2 mg/dL (0.5-0.9); POTASSIUM 4.2 mmol/L (3.5-5.1); TOTAL BILIRUBIN 0.8 mg/dL (0.20-1.00)
[2019-05-24] MEDS: NS 1,000 ML IV SCH ×2 (15:22→23:39)
[2019-05-24] MEDS: PRAVACHOL PO SCH (20:28)
[2019-05-24] MEDS: LANTUS INSULIN SUBQ SCH (21:16)
[2019-05-24] MEDS: ROCEPHIN 1 GM in NS 50 ML IV SCH (21:16)
[2019-05-25] MEDS: NS 1,000 ML IV SCH ×2 (07:32→18:09)
[2019-05-25] MEDS: HUMALOG (PARKWAY) SUBQ SCH ×4 (07:33→20:12)
[2019-05-25] MEDS: ELIQUIS PO SCH ×2 (08:20→20:11)
[2019-05-25] MEDS: COLACE PO SCH (08:20)
[2019-05-25] MEDS: TOPROL XL PO SCH (08:20)
[2019-05-25] MEDS: PRINIVIL PO SCH (08:20)
[2019-05-25] MEDS ORDERED: LANTUS INSULIN SUBQ SCH (09:00)
[2019-05-25 15:42] LABS: BASO# 0.06 X1000 (0.0-0.2); BASO% 0.5 % (0.0-0.8); EOS# 0.24 X1000 (0.0-0.7); HEMATOCRIT 42.4 % (37.0-47.0); HEMOGLOBIN 13.4 g/dL (12.0-16.0); IMM GRAN# 0.02 X1000 (0.0-0.04); IMM GRAN% 0.2 % (0.0-0.5); LYMPH# 2.93 X1000 (1.2-3.4); LYMPH% 24.1 % (20.5-51.1); MCH 29.7 PG (27-31); MCHC 31.6 g/dL (33-37); MONO# 1.38 X1000 (0.11-0.59); MONO% 11.4 % (1.7-9.3); MPV 12.6 FL (7.4-10.4); NEUT# 7.52 X1000 (1.4-6.5); NEUT% 61.8 % (42.2-75.2); PLT 190 X1000 (130-400); RBC 4.51 XMIL (4.2-5.4); RDW 12.5 % (11.5-14.5); WBC 12.15 X1000 (4.8-10.8)
[2019-05-25 16:19] LABS: ALBUMIN 3.5 g/dL (3.5-5.0); POTASSIUM 3.9 mmol/L (3.5-5.1); TOTAL BILIRUBIN 0.4 mg/dL (0.20-1.00); TOTAL PROTEIN 5.9 g/dL (6.3-8.3)
[2019-05-25] MEDS ORDERED: NS 2,000 ML IV SCH (18:00)
[2019-05-25] MEDS: PRAVACHOL PO SCH (20:12)
[2019-05-25] MEDS: LANTUS INSULIN SUBQ SCH (20:12)
[2019-05-25] MEDS: ROCEPHIN 1 GM in NS 50 ML IV SCH (22:00)
[2019-05-26] MEDS: HUMALOG (PARKWAY) SUBQ SCH (06:21)
[2019-05-26] MEDS: COLACE PO SCH (09:04)
[2019-05-26] MEDS: ELIQUIS PO SCH (09:04)
[2019-05-26] MEDS: TOPROL XL PO SCH (09:04)
[2019-05-26] MEDS: PRINIVIL PO SCH (09:04)
[2019-05-26 12:05] LABS: ALBUMIN 3.3 g/dL (3.5-5.0); CALCIUM 8.1 mg/dL (8.8-10.2); POTASSIUM 3.7 mmol/L (3.5-5.1); TOTAL BILIRUBIN 0.6 mg/dL (0.20-1.00); TOTAL PROTEIN 6.1 g/dL (6.3-8.3)
[2019-05-26 14:35] VITALS: BP 102/66
--- NOTE | 2019-05-26 15:08 | PROGRESS NOTE ---
DATE: 05/25/2019 LABORATORY DATA: On 05/25/2019 showed a white count of 12,015 with a normal differential. Hematocrit 42.4 and platelet count was 190,000. Sodium was 134, potassium 3.9, chloride 99, CO2 20, BUN 30, creatinine 2.0, and her estimated GFR is 24. Sugars range from 106 to 280. Liver functions were normal. Total protein was slightly low. SUBJECTIVE: Seems to be doing better, however has vomited a couple of times now. Diarrhea does not seem to be a big problem. MICROBIOLOGY: Blood cultures are negative. Urine was negative. OBJECTIVE: Vital Signs: Temperature 98 degrees, axillary. Pulse 81. Respiratory rate 20. Blood pressure 114/49. O2 saturation 100%. cc: Melvin Barry MD
--- NOTE | 2019-05-26 15:24 | PROGRESS NOTE ---
DATE: 05/24/2019 The patient has continued to have vomiting but has slacked up a bit. Still very nauseated, lying in bed, not taking in much fluid. Lab values are currently pending. Belly is soft. She is not hungry. Nauseated, bloated. She has a diagnosis of diabetic gastroparesis per [facility]. We will continue to treat her nausea and rehydrate her. cc: Melvin Barry MD
== END 2019-05-26 15:15 | disposition home or self-care (01) ==
LOC: P.ED 13:54 → EDIPHOLD 21:02 → INTOOBSV 21:02 → OPS 21:02 → P.MEDSURG 22:18 → OPS 05-26 15:15
PROVIDERS: ATTEND Internal Medicine

== ENCOUNTER 2019-06-14 07:45 | Inpatient (IN) ==
[2019-06-14 08:16] LABS: BASO# 0.03 X1000 (0.0-0.2); BASO% 0.4 % (0.0-0.8); EOS# 0.01 X1000 (0.0-0.7); EOS% 0.1 % (0.0-10.0); HEMATOCRIT 43.9 % (37.0-47.0); HEMOGLOBIN 14.4 g/dL (12.0-16.0); IMM GRAN# 0.01 X1000 (0.0-0.04); IMM GRAN% 0.1 % (0.0-0.5); LYMPH# 0.88 X1000 (1.2-3.4); LYMPH% 11.6 % (20.5-51.1); MCH 30.5 PG (27-31); MCHC 32.8 g/dL (33-37); MONO# 0.25 X1000 (0.11-0.59); MONO% 3.3 % (1.7-9.3); MPV 12.8 FL (7.4-10.4); NEUT# 6.42 X1000 (1.4-6.5); NEUT% 84.5 % (42.2-75.2); PLT 202 X1000 (130-400); RBC 4.72 XMIL (4.2-5.4); RDW 12.4 % (11.5-14.5)
[2019-06-14] MEDS ORDERED: NS 1,000 ML IV ONE (08:28)
[2019-06-14] MEDS ORDERED: PHENERGAN IV ONE (08:28)
[2019-06-14] MEDS ORDERED: SODIUM CHLORIDE 0.9% INJ ONE (08:28)
[2019-06-14 08:30] LABS: INR 0.9; PROTIME 12.6 Seconds (11.0-16.0)
[2019-06-14 08:31] LABS: PTT 25.8 Seconds (22.3-41.8)
[2019-06-14 08:34] LABS: ALBUMIN 4.4 g/dL (3.5-5.0); CREATININE 1.2 mg/dL (0.5-0.9); POTASSIUM 4.3 mmol/L (3.5-5.1); TOTAL BILIRUBIN 0.5 mg/dL (0.20-1.00); TOTAL PROTEIN 7.3 g/dL (6.3-8.3)
--- NOTE | 2019-06-14 08:47 | Diag Imaging Result Doc PS360 ---
EXAM: CHEST-1 VIEW HISTORY: n/v TECHNIQUE: Single view COMPARISON: 05/23/2019 FINDINGS: Poor inspiratory effort. The heart is not enlarged. The vessels are not distended. There are no infiltrates. No effusion identified. IMPRESSION: No pneumonia Electronically signed by Rex Muniz 06/14/2019 8:44 AM
[2019-06-14] MEDS ORDERED: LANTUS INSULIN SUBQ ONE (09:16)
--- NOTE | 2019-06-14 09:31 | PROVIDER DOCUMENTATION ---
This chart was entered by Rachel Biswas Scribe, acting as scribe for Melvin Barry MD. HPI-Abdominal Pain/GI Problem - General Chief Complaint: Nausea/Vomiting Stated Complaint: V/N Time Seen by Provider: 06/14/19 08:07 Source: patient Allergies/Adverse Reactions: Patient Allergies Allergy/AdvReac Type Severity Reaction Status Date / Time No Known Allergies Allergy Verified 02/09/19 12:38 Home Medications: Home Medication List Medication Instructions Recorded Confirmed Last Taken Type Metoprolol Succinate E.r. [Toprol 25 mg PO DAILY #30 tablet 11/12/16 05/23/19 05/22/19 09:00 Rx Xl] Insulin Glargine [Lantus] 26 units SQ QHS 06/30/17 05/23/19 05/22/19 21:00 History Aspirin 81 mg PO DAILY 07/26/17 05/23/19 05/22/19 09:00 History Pravastatin Sodium 20 mg PO HS 02/09/19 05/23/19 05/22/19 21:00 History Apixaban [Eliquis] 2.5 mg PO BID 05/23/19 05/23/19 Unknown History Docusate Sodium [Colace] 100 mg PO DAILY 05/24/19 05/24/19 Unknown History - History of Present Illness-ABD Nature of Presenting Problems: 78yof presents to ED cc nausea and vomiting since last night that is not resolving with meds. She had a FSBS of 297 this morning. She denies D/F/C/Cough/SOB. Pt has been seen at [facility] and [facility] for symptoms and the only dx given is DM gastroparesis. She is a pt of Dr. Eileen Barry. She is afebrile upon exam. Abdominal Pain Onset Location: reports: generalized abdomen Quality of Pain: reports: aching, cramping Severity in ED: reports: moderate Onset/Duration: reports: last night Timing: reports: still present, getting worse Activities at Onset: reports: light activity Exposure to sick contacts?: No Modifying Factors: worse with: vomiting Associated Symptoms: reports: nausea, vomiting. denies: diarrhea, fever/chills Bruising or Bleeding Gums?: No Similar Symptoms Previously?: Yes Recently seen or treated by another doctor?: Yes (seen in ED 05/22/2019) Review of Systems - Adult - REVIEW OF SYSTEMS - ADULT Constitutional: reports: see HPI. denies: chills, fever, fatique Eyes: reports: no symptoms reported Ears, Nose, Mouth & Throat: reports: no symptoms reported Cardiovascular: reports: no symptoms reported Respiratory: reports: see HPI. denies: cough, shortness of breath Gastrointestinal: reports: see HPI, abdominal pain, nausea, vomiting. denies: constipation, diarrhea Genitourinary: reports: no symptoms reported Musculoskeletal: reports: no symptoms reported Integumentary: reports: no symptoms reported Neurological: reports: no symptoms reported Psychiatric: reports: no symptoms reported Endocrine: reports: no symptoms reported Hematologic/Lymphatic: reports: no symptoms reported Allergic/Immunologic: reports: no symptoms reported All Other Systems: Reviewed and Negative Past History - Adult - PAST MEDICAL HISTORY-ADULT Review of Records: reports: Old Records Reviewed, Nursing Assessment Review, Medications Reviewed, Social history reviewed & non-contributory. Major Childhood Illnesses: reports: denies history Cardiovascular: reports: HTN Respiratory: reports: denies history Gastrointestinal: reports: other (gastroparesis) Obstetrical/Gynecological: reports: denies history Genitourinary: reports: denies history Musculoskeletal: reports: denies history Neurological: reports: denies history Endocrine/Immune: reports: Diabetes Other Conditions: reports: denies history - PRIOR SURGERIES/PROCEDURES Surgical/Procedure History: reports: cholecystectomy, orthopedic (extremity) - PRIOR HOSPITALIZATIONS Prior Hospitalizations: reports: for similar symptoms - IMMUNIZATION STATUS Childhood Immunizations: See Nurse Assessment Flu Vaccine: See Nurse Assessment - FAMILY HISTORY Family History: reviewed, not pertinent - SOCIAL HISTORY Smoking: denies Physical Exam-General - PHYSICAL EXAM-ADULT Initial Vital Signs Reviewed: Yes - CONSTITUTIONAL General Appearance: alert. negative: anxious - EYES Eyes: PERRL/EOMI, pink conjunctivae. negative: photophobia - HEAD, EARS, NOSE, MOUTH & THROAT HENMT: normocephalic/atraumatic, moist mucous membranes. negative: angioedema - NECK Neck: non-tender, full range of motion, supple, normal inspection. negative: lymphadenopathy - RESPIRATORY Respiratory: chest non-tender, lungs clear, normal breath sounds. negative: rhonchi, wheezing - CARDIOVASCULAR Cardiovascular: normal peripheral pulses, no edema, no murmur, tachycardia. negative: bradycardia - GASTROINTESTINAL (ABDOMEN) Abdominal Exam: normal bowel sounds, soft, no organomegaly, no pulsatile mass, tenderness (generalized). negative: guarding - LYMPHATIC Lymphatic: no adenopathy. negative: enlargement - MUSCULOSKELETAL Back Exam: normal inspection, no CVA tenderness, no vertebral tenderness Extremity: normal range of motion, non-tender, normal gait, normal inspection, no pedal edema, no calf tenderness, normal capillary refill. negative: deformity, swelling - SKIN Integumentary: normal color, normal turgor, warm/dry. negative: diaphoresis, jaundice, rash - NEUROLOGIC Neurologic: assembler motor vehicle II-XII nml as tested, grossly normal - PSYCHIATRIC Psych/Mental Status: normal mood/affect, oriented x 3. negative: anxious Progress - PLAN OF CARE/RESULTS Progress/Plan/Lab Results: Vital Signs - 8 hr 06/14/19 07:52 Temperature 98.1 F Pulse Rate 120 H Respiratory Rate 20 Blood Pressure 232/109 O2 Sat by Pulse Oximetry 96 Laboratory Results - last 24 hr 06/14/19 06/14/19 06/14/19 08:00 08:00 08:00 WBC RBC Hgb Hct MCV MCH MCHC RDW Std Deviation Plt Count MPV Immature Gran % (Auto) Neut % (Auto) Lymph % (Auto) [place] % (Auto) Eos % (Auto) Baso % (Auto) Immature Gran # (Auto) Neut # (Auto) Lymph # (Auto) [place] # (Auto) Eos # (Auto) Baso # (Auto) PT INR PTT (Actin FS) Sodium 139 Potassium 4.3 Chloride 97 L Carbon Dioxide 25 Anion Gap 17 BUN 13 Creatinine 1.2 H Estimated GFR/1.73 m2 43 BUN/Creatinine Ratio 11 Glucose 346 H Calculated Osmolality 291 Calcium 10.0 Total Bilirubin 0.50 AST 15 ALT 11 Alkaline Phosphatase 96 Creatine Kinase 108 Troponin T High Sens 32 H Total Protein 7.3 Albumin 4.4 Globulin 3.0 Albumin/Globulin Ratio 2.0 Plasma Lactate 2.6 H 06/14/19 06/14/19 08:00 08:00 WBC 7.60 RBC 4.72 Hgb 14.4 Hct 43.9 MCV 93.0 MCH 30.5 MCHC 32.8 L RDW Std Deviation 12.4 Plt Count 202 MPV 12.8 H Immature Gran % (Auto) 0.1 Neut % (Auto) 84.5 H Lymph % (Auto) 11.6 L [place] % (Auto) 3.3 Eos % (Auto) 0.1 Baso % (Auto) 0.4 Immature Gran # (Auto) 0.01 Neut # (Auto) 6.42 Lymph # (Auto) 0.88 L [place] # (Auto) 0.25 Eos # (Auto) 0.01 Baso # (Auto) 0.03 PT 12.6 INR 0.90 PTT (Actin FS) 25.8 Sodium Potassium Chloride Carbon Dioxide Anion Gap BUN Creatinine Estimated GFR/1.73 m2 BUN/Creatinine Ratio Glucose Calculated Osmolality Calcium Total Bilirubin AST ALT Alkaline Phosphatase Creatine Kinase Troponin T High Sens Total Protein Albumin Globulin Albumin/Globulin Ratio Plasma Lactate Orders Category Date Time Status Cardiac Monitoring NOW Care 06/14/19 07:58 Active IV Insertion NOW Care 06/14/19 07:58 Active NEWS Score >or=5:Order NEWS Bundle S.O. NOW Care 06/14/19 07:57 Active Notify Provider of NEWS Score NOW Care 06/14/19 07:58 Active CHEST-1 VIEW [RAD] Stat Exams 06/14/19 07:58 Completed BLOOD CULTURE [BLDCUL] Stat Lab 06/14/19 08:04 Ordered CBC WITH DIFF [HEME] Stat Lab 06/14/19 08:00 Completed CK PROFILE [SP CHEM] Stat Lab 06/14/19 08:00 Completed COMPREHENSIVE METABOLIC PANEL [CHEM] Stat Lab 06/14/19 08:00 Completed LACTATE, PLASMA [CHEM] Lab 06/14/19 11:00 Uncollected LACTATE, PLASMA [CHEM] Lab 06/14/19 14:00 Uncollected LACTATE, PLASMA [CHEM] Q3H Lab 06/14/19 08:00 Completed PROTIME WITH INR [COAG] Stat Lab 06/14/19 08:00 Completed PTT [COAG] Stat Lab 06/14/19 08:00 Completed TROPONIN T HIGH SENSITIVITY Stat Lab 06/14/19 08:00 Completed URINALYSIS W/POSS RFLX CULT [URINALYSIS] Stat Lab 06/14/19 07:58 Uncollected 0.9% Sodium Chloride Inj [Ns] 1,000 ml Med 06/14/19 08:28 Active IV 999 mls/hr Promethazine [Phenergan] Med 06/14/19 08:28 Discontinued 12.5 mg IV NOW ONE Sodium Chloride 0.9% Med 06/14/19 08:28 Discontinued 10 ml INJ NOW ONE O2 Per Protocol Stat Oth 06/14/19 07:58 Active Result Diagrams: 06/14/19 08:00 06/14/19 08:00 Departure - Departure Date of Disposition Decision: 06/14/19 Time of Disposition Decision: 09:07 DIAGNOSIS: Gastroparesis due to DM Disposition: ADMITTED INPATIENT 09 Certified Medical Emergency: Emergent Condition: Stable Referrals and Follow-Ups: Melvin Barry MD [Primary Care Provider] - - Critical Care Note This patient required my direct & personal management of CC.: No Attestation - Physician/ KAILA Attestation Patient care was provided by Advanced Practice Provider:: No The physician spent face to face time with patient:: Yes Advanced Practice Provider documentation review:: Supervising physician onsite and consulted in the evaluation and care of this patient. The physician did have a face to face encounter with the patient. This chart was documented by the indicated scribe, (Rachel Biswas Scribkaren) and accurately reflects the services I performed and decisions made by me, Melvin Barry MD, as attested by the provider's signature.
[2019-06-14] MEDS ORDERED: NS 2,000 ML IV ONE (10:08)
[2019-06-14] MEDS: SODIUM CHLORIDE 0.9% INJ PRN ×2 (13:08→17:03)
[2019-06-14] MEDS: PHENERGAN IV PRN ×3 (13:08→21:05)
[2019-06-14] MEDS ORDERED: NS 1,000 ML ONE (17:58)
[2019-06-14] MEDS: ELIQUIS PO SCH (20:30)
[2019-06-14] MEDS: LANTUS INSULIN SUBQ SCH (20:31)
[2019-06-14] MEDS: PRAVACHOL PO SCH (20:31)
[2019-06-15] MEDS: PHENERGAN IV PRN ×3 (01:24→19:54)
[2019-06-15] MEDS: ASPIRIN PO SCH (09:02)
[2019-06-15] MEDS: ELIQUIS PO SCH ×2 (09:37→20:04)
[2019-06-15] MEDS: TOPROL XL PO SCH (09:38)
[2019-06-15] MEDS: PRINIVIL PO SCH (09:38)
[2019-06-15] MEDS: SODIUM CHLORIDE 0.9% INJ PRN ×2 (15:03→19:54)
[2019-06-15] MEDS ORDERED: ZOFRAN IV PRN (16:03)
[2019-06-15] MEDS ORDERED: NS 1,000 ML IV SCH (16:15)
[2019-06-15 17:17] LABS: BASO# 0.03 X1000 (0.0-0.2); BASO% 0.2 % (0.0-0.8); EOS# 0.02 X1000 (0.0-0.7); EOS% 0.2 % (0.0-10.0); HEMATOCRIT 44.9 % (37.0-47.0); HEMOGLOBIN 14.6 g/dL (12.0-16.0); IMM GRAN# 0.04 X1000 (0.0-0.04); IMM GRAN% 0.3 % (0.0-0.5); LYMPH# 1.47 X1000 (1.2-3.4); MCH 30.2 PG (27-31); MCHC 32.5 g/dL (33-37); MONO% 7.5 % (1.7-9.3); MPV 12.9 FL (7.4-10.4); NEUT# 10.76 X1000 (1.4-6.5); NEUT% 80.8 % (42.2-75.2); PLT 230 X1000 (130-400); RBC 4.83 XMIL (4.2-5.4); RDW 12.7 % (11.5-14.5); WBC 13.32 X1000 (4.8-10.8)
[2019-06-15 17:32] LABS: ALBUMIN 3.9 g/dL (3.5-5.0); CALCIUM 9.2 mg/dL (8.8-10.2); CREATININE 0.9 mg/dL (0.5-0.9); POTASSIUM 4.4 mmol/L (3.5-5.1); TOTAL BILIRUBIN 0.9 mg/dL (0.20-1.00); TOTAL PROTEIN 7.3 g/dL (6.3-8.3)
--- NOTE | 2019-06-15 18:08 | PROGRESS NOTE ---
DATE: 06/15/2019 SUBJECTIVE: Ms. Baker continues to lie in bed overcome by nausea. No pain, no discomfort. Occasionally vomiting with limited intake because of her nausea, which has been treated with Phenergan most exclusively but she has also used other nausea medications but none seemed to prevail. OBJECTIVE: Vital signs: Current temperature is 98.3 degrees, pulse 112, respirations 20, blood pressure 164/86, oxygen saturation 95% on room air. Lungs are clear. Belly is soft. She just had her arm stuck for a blood draw. Laboratory data: White count has risen to 1332. Hematocrit is 44.9. Platelet count is 230. There is a left shift with 80% polys. Chemistries are all normal with some infusions of a liter of fluid, her plasma lactate is down to 1.1 from 2.5 yesterday. ASSESSMENT: She normally takes 5 units of NovoLog before each meal no matter what and 26 units background of Lantus. We are going to liberalize her Zofran a little bit along with the Phenergan to see if we can make her less nauseated and more willing to eat. As I said before, she has had multiple issues with this gastroparesis type situation. cc: Melvin Barry MD
[2019-06-15] MEDS: PRAVACHOL PO SCH (20:04)
[2019-06-15] MEDS: LANTUS INSULIN SUBQ SCH (22:52)
[2019-06-16] MEDS: NS 1,000 ML IV SCH ×3 (00:21→22:40)
[2019-06-16] MEDS: ASPIRIN PO SCH (08:23)
[2019-06-16] MEDS: ELIQUIS PO SCH ×2 (08:23→20:16)
[2019-06-16] MEDS: HUMALOG (PARKWAY) SUBQ SCH ×3 (08:23→15:53)
[2019-06-16] MEDS: PRINIVIL PO SCH (08:23)
[2019-06-16] MEDS: TOPROL XL PO SCH (08:23)
[2019-06-16] MEDS: PHENERGAN IV PRN (08:24)
[2019-06-16] MEDS: SODIUM CHLORIDE 0.9% INJ PRN (08:24)
--- NOTE | 2019-06-16 12:56 | PROGRESS NOTE ---
DATE: 06/16/2019 SUBJECTIVE: An 78-year-old female with diabetes and presumed diabetic gastroparesis who was hospitalized a few days ago for nausea and vomiting. She never really has much in the way of diarrhea. PHYSICAL EXAMINATION: Vital signs: Today she is afebrile. Pulse is 110, respiratory rate 20, BP 164/90. O2 saturation 100% on room air. She had done well last night and was given some Phenergan. She is a little bit heavy on the sedation. Today she had a little gag while I was up there. She drank some Sherrie Mist afterwards and was a little better. She has no edema. She is breathing fine. Her heart rhythm is regular. Abdomen: Soft. Persistent symptoms. LABORATORY: Her microbiology; negative blood cultures. We are going to repeat some labs here today and see how she is doing. DISPOSITION: She is basically lying comfortably in bed, nauseated sort of spurred on by any intake. She is not constipated. cc: Melvin Barry MD
[2019-06-16 14:14] LABS: BASO# 0.02 X1000 (0.0-0.2); BASO% 0.2 % (0.0-0.8); EOS# 0.08 X1000 (0.0-0.7); EOS% 0.7 % (0.0-10.0); HEMATOCRIT 44.8 % (37.0-47.0); HEMOGLOBIN 14.2 g/dL (12.0-16.0); IMM GRAN# 0.02 X1000 (0.0-0.04); IMM GRAN% 0.2 % (0.0-0.5); LYMPH# 2.47 X1000 (1.2-3.4); LYMPH% 21.3 % (20.5-51.1); MCH 30.3 PG (27-31); MCHC 31.7 g/dL (33-37); MCV 95.5 FL (81-99); MONO# 1.21 X1000 (0.11-0.59); MONO% 10.4 % (1.7-9.3); MPV 12.3 FL (7.4-10.4); NEUT# 7.82 X1000 (1.4-6.5); NEUT% 67.2 % (42.2-75.2); PLT 213 X1000 (130-400); RBC 4.69 XMIL (4.2-5.4); RDW 12.8 % (11.5-14.5); WBC 11.62 X1000 (4.8-10.8)
[2019-06-16 14:39] LABS: ALBUMIN 3.3 g/dL (3.5-5.0); CALCIUM 8.8 mg/dL (8.8-10.2); POTASSIUM 3.5 mmol/L (3.5-5.1); TOTAL BILIRUBIN 0.7 mg/dL (0.20-1.00); TOTAL PROTEIN 6.3 g/dL (6.3-8.3)
[2019-06-16] MEDS ORDERED: INSTA-GLUCOSE PO ONE (15:45)
[2019-06-16] MEDS ORDERED: INSTA-GLUCOSE ONE (15:52)
[2019-06-16 17:07] LABS: URINE SOURCE CLEAN CATCH
[2019-06-16] MEDS ORDERED: NS 1,000 ML IV ONE (17:08)
[2019-06-16 17:10] LABS: BILIRUBIN URINE NEGATIVE (NEGATIVE); BLOOD URINE NEGATIVE (NEGATIVE); COLOR YELLOW; GLUCOSE URINE >1000 mg/dL (NEGATIVE); KETONE URINE 20 mg/dL (NEGATIVE); LEUKOCYTES URINE SMALL (NEGATIVE); NITRITE URINE NEGATIVE (NEGATIVE); PROTEIN URINE TRACE mg/dL (NEGATIVE); SP GRAVITY URINE 1.017; TURBIDITY URINE CLEAR (CLEAR); UROBILINOGEN URINE NORMAL (NORMAL)
[2019-06-16] MEDS ORDERED: PHENERGAN IV PRN (17:10)
[2019-06-16 17:12] LABS: UR EPITHELIAL CELLS <10 /HPF (<10); URINE BACTERIA NEGATIVE /HPF; URINE RBC <10 /HPF (<10)
[2019-06-16 19:49] LABS: BASO# 0.04 X1000 (0.0-0.2); BASO% 0.3 % (0.0-0.8); EOS# 0.11 X1000 (0.0-0.7); HEMATOCRIT 41.8 % (37.0-47.0); HEMOGLOBIN 13.1 g/dL (12.0-16.0); IMM GRAN# 0.04 X1000 (0.0-0.04); IMM GRAN% 0.3 % (0.0-0.5); LYMPH# 2.18 X1000 (1.2-3.4); MCH 29.9 PG (27-31); MCHC 31.3 g/dL (33-37); MCV 95.4 FL (81-99); MONO# 1.52 X1000 (0.11-0.59); MONO% 13.2 % (1.7-9.3); MPV 12.3 FL (7.4-10.4); NEUT# 7.59 X1000 (1.4-6.5); NEUT% 66.2 % (42.2-75.2); PLT 205 X1000 (130-400); RBC 4.38 XMIL (4.2-5.4); RDW 12.8 % (11.5-14.5); WBC 11.48 X1000 (4.8-10.8)
[2019-06-16 20:12] LABS: ALBUMIN 3.3 g/dL (3.5-5.0); CALCIUM 8.2 mg/dL (8.8-10.2); CREATININE 1.2 mg/dL (0.5-0.9); POTASSIUM 3.7 mmol/L (3.5-5.1); TOTAL BILIRUBIN 0.6 mg/dL (0.20-1.00); TOTAL PROTEIN 6.1 g/dL (6.3-8.3)
[2019-06-16] MEDS: PRAVACHOL PO SCH (20:16)
[2019-06-16] MEDS: LANTUS INSULIN SUBQ SCH (20:16)
[2019-06-17] MEDS: NS 1,000 ML IV SCH ×2 (08:03→21:03)
[2019-06-17] MEDS: ELIQUIS PO SCH ×2 (08:31→20:10)
[2019-06-17] MEDS: ASPIRIN PO SCH (08:31)
[2019-06-17] MEDS: PRINIVIL PO SCH (08:31)
[2019-06-17] MEDS: TOPROL XL PO SCH (08:31)
[2019-06-17] MEDS ORDERED: HUMALOG (PARKWAY) SUBQ ONE (16:54)
[2019-06-17] MEDS ORDERED: FLOMAX PO ONE (18:33)
[2019-06-17] MEDS: LANTUS INSULIN SUBQ SCH (20:10)
[2019-06-17] MEDS: PRAVACHOL PO SCH (20:10)
[2019-06-18] MEDS: NS 1,000 ML IV SCH (06:48)
[2019-06-18] MEDS: PRINIVIL PO SCH (08:36)
[2019-06-18] MEDS: TOPROL XL PO SCH (08:36)
[2019-06-18] MEDS: ASPIRIN PO SCH (08:38)
[2019-06-18] MEDS: ELIQUIS PO SCH (08:39)
[2019-06-18 15:02] VITALS: BP 149/55
--- NOTE | 2019-06-21 17:38 | HISTORY AND PHYSICAL ---
HISTORY OF PRESENT ILLNESS: An 78-year-old female, who episodically has these episodes where she has severe dyspepsia associated with recurrent nausea, vomiting, that has been investigated here and at [facility] and is felt to be a gastroparesis secondary to some diabetes that she has had for a long time. So she presented to the emergency room having had vomited multiple times during last night and early part of the following day and not resolving with medications. She had a fasting blood sugar of 297 this morning. She denies any diarrhea, fever, chills, cough, shortness of breath. She is afebrile when she presented to the ER where she was seen. She described to Dr. Boswell that it was generalized abdominal bloating that is not really significant pain just more of an achy, crampy sensation, moderate, started last night, seems to be getting worse, unassociated with any activity. No exposures. No history of any vomiting, melena, hematochezia. She is not a free bleeder. ALLERGIES: She has no allergies. MEDICINES: Metoprolol 25 p.o. b.i.d., Lantus 26 at bedtime, aspirin 81 daily, pravastatin 20 daily, Eliquis 2.5 b.i.d, and docusate. REVIEW OF SYSTEMS: She denies any fever, chills, fatigue, significant weight gain or weight loss. Eyes: No change in visual acuity, irritation of her eyes or field cuts. Ears, nose and throat: No pharyngitis, sinusitis, or otitis. Cardiovascular: No chest pain, palpitations, edema, PND, orthopnea. Respiratory: No cough, wheeze, shortness of breath, phlegm. Gastrointestinal: She has abdominal pain, nausea followed by vomiting. She does not much diarrhea or constipation. Genitourinary: No dysuria, hematuria, polyuria, or pyuria. Musculoskeletal: No joint aches, muscle issues, bone pain. Neurological: She gets weak and sleepy. Endocrine: No polyneuropathy. No asthma. PAST MEDICAL HISTORY: Gastroparesis, hypertension, obesity, diabetes, status post cholecystectomy, and some orthopedic surgeries. SOCIAL HISTORY: She is a nonsmoker, nondrinker. She is taken care of by her daughters, who see after her very acutely. PHYSICAL EXAMINATION: VITAL SIGNS: She had a temperature of 98, pulse was 120 in the ER, respiratory rate was 20, BP 232/109 supposedly. HEENT: Head was normocephalic. Eyes were PERRL. EOMs intact. SC clear. Fundi benign. Nares patent. Oropharynx negative. NECK: Supple, bounding carotids without thyromegaly. Midline trachea. CHEST: Clear bilaterally inspiration and expiration. CARDIOVASCULAR EXAM: Regular rhythm and rate. No murmur, gallop, clicks, or rubs. ABDOMEN: Obese, soft. No hepatosplenomegaly. Had 4 quadrant bowel sounds. EXTREMITIES: Negative for clubbing, cyanosis, edema. NEUROLOGICAL EXAM: Intact. ADMITTING DIAGNOSES: 1. Recurrent diabetic gastroparesis. 2. Diabetes. 3. Atrial fibrillation. 4. Hypertension. She is admitted for therapy, which consists primarily of giving her Phenergan and maintaining her fluid status. Her blood sugar was 346 on admission, lactate was 2.6. Electrolytes were normal, BUN 13, creatinine 1.2, calcium 10, AST 15, ALT 11. CK 108, troponin high-sensitivity 32. Proteins were normal. cc: Melvin Barry MD
--- NOTE | 2019-06-21 17:47 | PROGRESS NOTE ---
DATE: 06/17/2019 SUBJECTIVE: Her hospital stay was brought on by a bout of gastroparesis in which she basically hibernates under the influence of Phenergan with IV fluids to keep from vomiting repetitively. She has a background history of diabetes that is quite volatile, high or low, or easy to happen. OBJECTIVE: Vital signs: Temperature on 06/16 was 98 degrees, pulse was 89, respiratory rate was 18, BP 111/41, O2 saturation 98% on room air. She had some cultures drawn, mixed elizabeth on the urine, and blood cultures were no growth. LABORATORY: On 06/16 were not drawn, but on [the *otherhand ], she had a white count of 11,500 which she has been what she has been doing, hematocrit steady in the low 40s, platelet count is okay. Her chemistries on 06/16 were blood sugars in the 376 range. She was awakened, was sitting up in a chair unlike previous days and as typically it left as quick as it came, the nausea subsided. She was able to tolerate drinks. We had issues on discharging her because of some problems with transportation and the virus episode but she is discharged on her regular medicines and will follow her up as an outpatient. cc: Melvin Barry MD MTDD
== END 2019-06-18 18:32 | disposition home or self-care (01) | DRG 74 ==
LOC: P.MEDSURG 07:45 → P.ED 07:45
PROVIDERS: ADMIT Internal Medicine; ATTEND Internal Medicine